=== PATIENT | female | born 1985 | race Caucasian/White ===

== ENCOUNTER 2018-06-10 07:25 | Day surgery (SDC) | payer BC ==
[2018-06-10] MEDS ORDERED: Midazolam 1 MG/ML 2 ML SDV ONE (08:04)
[2018-06-10] MEDS ORDERED: fentaNYL 100 MCG/2 ML SDV ONE (08:04)
[2018-06-10] MEDS ORDERED: Propofol 200 MG/20 ML SDV ONE (08:05)
[2018-06-10] MEDS: Dextrose 5%-Lactated Ringers 1,000 ML IV SCH (08:28)
[2018-06-10] MEDS: Glycopyrrolate 0.2 MG/ML 2 ML SDV IVPUSH ONE (09:16)
--- NOTE | 2018-06-13 13:29 | OR ---
DATE OF PROCEDURE: 06/10/2018 PREOPERATIVE DIAGNOSIS: Decreased satiety following recent revision of Zakiya-en-Y gastric bypass. POSTOPERATIVE DIAGNOSIS: Normal gastric bypass anatomy status post revision of Zakiya-en-Y gastric bypass. OPERATIVE PROCEDURE: Upper GI endoscopy. ANESTHESIA: IV sedation. INDICATION FOR PROCEDURE: A 33-year-old who underwent revision of Zakiya-en-Y gastric bypass on 01/11/2018. This included reduction of the pouch size as well as creation of the common limb length of around 100 cm. Initially, she did well with reduction in weight. Recently, she has felt she has significant element of early satiety and to rule out any anatomic abnormalities, upper GI endoscopy is being undertaken. Potential risks of the procedure including bleeding and perforation were discussed, and the patient wishes to proceed. DETAILS OF PROCEDURE: The patient was taken to the operating room and placed in a left lateral decubitus position. IV sedation was administered, after which the upper GI endoscope was passed orally through the length of the esophagus and into the gastric pouch and from there through the gastrojejunostomy roughly 20 cm into the Zakiya limb. Overall findings appeared to be entirely normal. The hypopharynx and upper esophageal sphincter and esophageal body were unremarkable. Gastric pouch at this point was quite small and the gastrojejunostomy was narrowed such that the estimated diameter was no more than 1.5 cm. There were no marginal ulcers or significant inflammation present, and the visualized portion of the Zakiya limb was unremarkable. At this point, the gastroscope was withdrawn, procedure then concluded. At this point, the situation was discussed with physician bacteriology research assistant Sheryl Barth, and the patient will be following up with Pyro regarding possible addition of medication for weight control such as phentermine or Contrave. Karthik Thorpe MD /[id number]
== END 2018-06-10 11:57 | disposition home or self-care (01) ==
LOC: JP.SDS 07:25
PROVIDERS: ATTEND Surgery
DX: R68.81 Early satiety (principal); K90.9 Intestinal malabsorption, unspecified; E66.9 Obesity, unspecified; Z68.43 Body mass index [BMI] 50.0-59.9, adult
CPT/HCPCS: 43235; 81025; J2250; J2704; J3010; J3490; J7042